=== PATIENT | female | born 1980 | race Caucasian/White ===

== ENCOUNTER 2020-05-16 18:25 | Emergency (ER) | payer MEDICARE, MEDICAID ==
--- NOTE | 2020-05-16 19:04 | EDM.PDOC ---
ED HPI GENERAL MEDICAL PROBLEM - General Chief Complaint: [employer] Problem Stated Complaint: PREG/SPOTTING Time Seen by Provider: 05/16/20 19:19 Source of Information: Reports: Patient History Limitations: Reports: No Limitations - History of Present Illness INITIAL COMMENTS - FREE TEXT/NARRATIVE: pt has had spotting for the past 24 hours. She has no cramping. She had a positive preg test on Apr 02. She normally as completely normal regular periods. She is bleeding like she has a period. pt has history of some type of bone cancer. This is supposed to be congental. Onset: Today Duration: Hour(s):, Other ( bleeding is heavy like a period. ) Location: Reports: Abdomen Associated Symptoms: Reports: No Other Symptoms - Related Data Allergies Allergy/AdvReac Type Severity Reaction Status Date / Time No Known Allergies Allergy Verified 05/16/20 19:04 Home Meds: Home Meds NK [No Known Home Meds] 05/16/20 [History] ED ROS GENERAL - Review of Systems Review Of Systems: See Below Constitutional: Reports: No Symptoms HEENT: Reports: No Symptoms Respiratory: Reports: No Symptoms Cardiovascular: Reports: No Symptoms Endocrine: Reports: No Symptoms GI/Abdominal: Reports: No Symptoms : Reports: Other ( vaginal spotting with a 8 week preg. ) Musculoskeletal: Reports: No Symptoms Skin: Reports: No Symptoms Neurological: Reports: No Symptoms ED EXAM - Physical Exam Exam: See Below Text/Narrative:: pt arrived with vaginal bleeding and she thinks she is 8 weeks preg. She has no cramping. She norm,ally has regular periods. A quantative preg test was obtained which is 1. She was told that this was a negative preg test. A US and exam was offered to the pt. She stated that she needed to leave [facility] that she would go and see Torrie Bojorquez for further workup. Exam Limited By: No Limitations General Appearance: Alert, No Apparent Distress, Other (pt has no cramping. ) Ears: Normal External Exam Nose: Normal Inspection Throat/Mouth: Normal Inspection Head: Atraumatic Neck: Normal Inspection Respiratory/Chest: No Respiratory Distress (Female) Exam: Other (pt refused an US and a pelvic exam. ) Course - Vital Signs Last Recorded V/S: Last Vital Signs Temp 36.7 C 05/16/20 19:04 Pulse 104 H 05/16/20 19:04 Resp 22 H 05/16/20 19:04 BP 149/95 H 05/16/20 19:23 Pulse Ox 95 05/16/20 19:04 - Orders/Labs/Meds Orders: Active Orders 24 hr Category Date Time Status UA W/MICROSCOPIC [URIN] Urgent Lab 05/16/20 19:20 Ordered Labs: Laboratory Tests 05/16/20 05/16/20 05/16/20 Range/Units 19:14 19:14 19:14 WBC 12.5 H (4.5-11.0) K/uL RBC 5.07 (3.30-5.50) M/uL Hgb 12.5 (12.0-15.0) g/dL Hct 41.9 (36.0-48.0) % MCV 83 (80-98) fL MCH 25 L (27-31) pg MCHC 30 L (32-36) % Plt Count 419 H (150-400) K/uL Neut % (Auto) 60 (36-66) % Lymph % (Auto) 29 (24-44) % [place] % (Auto) 7 H (2-6) % Eos % (Auto) 3 (2-4) % Baso % (Auto) 1 (0-1) % Sodium 139 L (140-148) mmol/L Potassium 3.9 (3.6-5.2) mmol/L Chloride 101 (100-108) mmol/L Carbon Dioxide 28 (21-32) mmol/L Anion Gap 13.9 (5.0-14.0) mmol/L BUN 15 (7-18) mg/dL Creatinine 0.8 (0.6-1.0) mg/dL Est Cr Clr Drug Dosing 85.80 mL/min Estimated GFR (MDRD) > 60 (>60) Glucose 98 (74-106) mg/dL Calcium 8.9 (8.5-10.1) mg/dL Total Bilirubin 0.6 (0.2-1.0) mg/dL AST 15 (15-37) U/L ALT 25 (12-78) U/L Alkaline Phosphatase 101 (46-116) U/L Total Protein 8.2 (6.4-8.2) g/dL Albumin 3.2 L (3.4-5.0) g/dL Globulin 5.0 H (2.3-3.5) g/dL Albumin/Globulin Ratio 0.6 L (1.2-2.2) HCG, Quant 1 (0-6) mIU/mL - Re-Assessments/Exams Free Text/Narrative Re-Assessment/Exam: 05/16/20 20:23 Quantative hcg was 1. - which is a neg preg test. Departure - Departure Time of Disposition: 20:15 Disposition: Home, Self-Care 01 Condition: Fair Clinical Impression: Vagina bleeding - Discharge Information Instructions: Menstruation Referrals: Torrie Bojorquez MD [Primary Care Provider] - Forms: ED Department Discharge Care Plan Goals: your Quantative test appears to be negative with a value of 1. An US was offer to look for ovarian cysts or other problems and you were not able to stay, schedule a appt with Your physician Torrie Bojorquez for further work up, return if bleeding should become very heavy. Sepsis Event Note (ED) - Focused Exam Vital Signs: Vital Signs Temp Pulse Resp BP Pulse Ox 05/16/20 19:23 149/95 H 05/16/20 19:04 36.7 C 104 H 22 H 232/139 H 95 05/16/20 19:02 36.7 C 104 H 22 H 232/139 H 95 - My Orders Last 24 Hours: My Active Orders 05/16/20 19:20 UA W/MICROSCOPIC [URIN] Urgent - Assessment/Plan Last 24 Hours: My Active Orders 05/16/20 19:20 UA W/MICROSCOPIC [URIN] Urgent
== END 2020-05-16 20:22 | disposition home or self-care (01) ==
LOC: JP.ED 18:25
DX: N93.9 Abnormal uterine and vaginal bleeding, unspecified (principal)
CPT/HCPCS: 36415; 80053; 84702; 85025; 99282; 99284